=== PATIENT | female | born 1985 | race Caucasian/White ===

== ENCOUNTER 2017-02-26 16:43 | Emergency (ER) | payer MEDICAID ==
[~2017-02-26 16:43] MED LIST: ADVAIR; ADVAIR 25028 BLISTER INH; ADVIL200 M1 PO; ALBUTEROL SULF8.5 G1 IH; ALBUTEROL SULF8.5 G2 IH; ALBUTEROL17 GM INH; AMOXICILLIN500 M PO; AMOXIL500 MG PO; AUGMENTIN 875-11 TAB PO; AVELOX400 MG PO; AZITHROMYCIN250 M1 PO; BACTRIM DS TAB1 EACH PO; BACTRIM DS TABL1 TAB PO; BENTYL20 MG PO; CATAFLAM50 MG PO; COMPAZINE10 M PO; COUGH MED W/CODEINE; DARVOCET-N 1001 EACH PO; DARVOCET-N 1001 TAB; DOXY-LEMMON100 MG PO; DURICEF500 MG PO; ERYTHROMYCIN3.5 GM OP; FEOSOL325 MG PO; FLEXERIL10 MG PO; FLEXERIL5 MG PO; FUSION PLUS PO; GLYBURIDE5 MG PO; HYDROCODON-ACE1 EAC5 PO; IBUPROFEN800 MG PO; IRON TAB; IRON325 ( 65 ); KEFLEX500 MG PO; LORTAB 5-500 T1 EACH PO; METFORMIN HCL500 M4 PO; MOBIC7.5 MG PO; MOTRIN800 MG PO; MUSCLE RELAXER; NORCO 10/325 TA1 TAB PO; NORCO 5/325 TAB1 TAB PO; OMEPRAZOLE20 M2 PO; OXYCODONE/APAP PO; PAIN RELIEVER; PAIN RELIEVER500 M3 PO; PEN-VEE K500 MG PO; PREDNISONE10 MG PO; PREDNISONE20 MG PO; PREDNISONE50 MG PO; PRENATAL1 EACH PO; PRENATAL1 TAB; PRILOSEC40 MG PO; PROCARDIA XL60 MG PO; PROCARDIA10 MG; PROCTOFOAM15 GM RC; PROVENTIL HFA6.7 G1 INH; PROVENTIL2 MG PO; SILVADENE20 GM TP; TESSALON PERLE100 M1 PO; ULTRAM50 MG PO; ZESTRIL10 M3 PO; ZITHROMAX250 MG PO; ZITHROMAX250MG Z-PAK PO; ZOFRAN ODT4 MG/UDTAB PO; ZYRTEC10 MG PO
[2017-02-26] MEDS ORDERED: CYCLOBENZAPRINE10 M1 PO (17:55)
== END 2017-02-26 18:11 ==
LOC: EDMED 16:43
DX: S29.012A Strain of muscle and tendon of back wall of thorax, initial encounter (principal); R10.33 Periumbilical pain; X58.XXXA Exposure to other specified factors, initial encounter